=== PATIENT | male | born 1945 | race Caucasian/White ===

== ENCOUNTER 2023-11-02 10:36 | Observation (INO) | payer OTHER ==
[2023-11-02 11:27] VITALS: BMI 30.7
[2023-11-02] MEDS ORDERED: NITROGLYCERIN SUBLINGUAL 1/150 0.4 MG TAB SL PRN (11:30)
[2023-11-02] MEDS ORDERED: NITROGLYCERIN SUBLINGUAL 1/150 0.4 MG TAB ONE (11:48)
[2023-11-02] MEDS ORDERED: NITROGLYCERIN 2% OINTMENT - 1GM PACKET TD ONE ×2 (12:04→12:17)
[2023-11-02 12:43] LABS: BASO % 0.8 % (0-2.0); HEMATOCRIT 42.3 % (35.4-49); LYMPH % 29.4 % (8-40); MCHC 33.1 g/dl (32.0-35.9); MEAN CELL VOLUME 93.7 fl (80-96); MEAN PLT VOLUME 9.9 fl (7.5-11.1); MONO % 8.1 % (3.8-10.2); NEUT % 58.7 % (42.8-82.8); PLATELET COUNT 144 10^3/uL (134-434); RBC 4.52 M/mm3 (4.00-5.60); RDW 14.1 % (11.9-15.9); WHITE BLOOD COUNT 6.5 K/mm3 (4.0-10.0)
[2023-11-02 12:46] LABS: POTASSIUM 4.8 mmol/L (3.5-5.1)
[2023-11-02 12:48] LABS: CALCIUM 10.2 mg/dL (8.5-10.1); INR 1.05 (0.83-1.09); PROTHROMBIN TIME (PATIENT) 12.2 SEC (9.7-13.0)
[2023-11-02 12:49] LABS: ALBUMIN 3.8 g/dl (3.4-5.0); BLOOD UREA NITROGEN 19.4 mg/dL (7-18)
[2023-11-02 12:51] LABS: ACTIVATED PTT 27.6 SECONDS (25.2-36.5)
[2023-11-02 12:52] LABS: CREATININE 0.8 mg/dL (0.55-1.3)
[2023-11-02 12:53] LABS: BILIRUBIN,TOTAL 0.6 mg/dL (0.2-1); TOT PROT 7.2 g/dl (6.4-8.2)
[2023-11-02] MEDS ORDERED: METOPROLOL TARTRATE 25 MG TABLET (FP) PO ONE (17:41)
[2023-11-02] MEDS ORDERED: TAMSULOSIN HCL 0.4 MG CAP ONE (20:50)
[2023-11-02] MEDS ORDERED: metoPROLOL SUCCINATE 25 MG TAB.SR.24H (FP) PO ONE (20:50)
[2023-11-02] MEDS ORDERED: ACETAMINOPHEN 500 MG TABLET (FP) PO ONE (21:11)
[2023-11-02] MEDS ORDERED: ACETAMINOPHEN 500 MG TABLET (FP) ONE (21:14)
[2023-11-02] MEDS ORDERED: SOLIFENACIN SUCCINATE 5 MG TAB PO SCH (22:00)
[2023-11-02] MEDS ORDERED: TAMSULOSIN HCL 0.4 MG CAP PO SCH (22:00)
[2023-11-03] MEDS ORDERED: MELATONIN 5 MG TABLETS PO PRN (01:53)
[2023-11-03 07:22] VITALS: TEMP 97.4
[2023-11-03 08:16] LABS: POTASSIUM 3.5 mmol/L (3.5-5.1)
[2023-11-03 08:25] LABS: ALBUMIN 3.5 g/dl (3.4-5.0); BLOOD UREA NITROGEN 16.8 mg/dL (7-18); CALCIUM 9.1 mg/dL (8.5-10.1); MAGNESIUM 2.1 mg/dL (1.8-2.4)
[2023-11-03 08:28] LABS: BASO % 0.6 % (0-2.0); CREATININE 0.8 mg/dL (0.55-1.3); HEMATOCRIT 41.4 % (35.4-49); LYMPH % 33.3 % (8-40); MCHC 33.7 g/dl (32.0-35.9); MEAN PLT VOLUME 10.5 fl (7.5-11.1); MONO % 9.4 % (3.8-10.2); NEUT % 53.7 % (42.8-82.8); PHOSPHOROUS 4.2 mg/dL (2.5-4.9); PLATELET COUNT 136 10^3/uL (134-434); RDW 13.9 % (11.9-15.9); WHITE BLOOD COUNT 5.6 K/mm3 (4.0-10.0)
[2023-11-03 08:30] LABS: BILIRUBIN,TOTAL 0.6 mg/dL (0.2-1); TOT PROT 6.6 g/dl (6.4-8.2)
[2023-11-03] MEDS ORDERED: REGADENOSON 0.4 MG/5 ML PRE-FILLED SYRINGE IVPUSH ONE ×2 (09:32→10:15)
[2023-11-03] MEDS ORDERED: PANTOPRAZOLE 40 MG TABLET PO SCH (10:00)
[2023-11-03] MEDS ORDERED: CLOPIDOGREL BISULFATE 75 MG TABLET (FP) PO SCH (10:00)
[2023-11-03] MEDS ORDERED: ASPIRIN 81 MG CHEWABLE TABLETS PO SCH (10:00)
[2023-11-03] MEDS ORDERED: ENOXAPARIN NA (PORCINE) 40 MG/0.4 ML DISP.SYRIN SQ SCH (10:00)
[2023-11-03 13:12] VITALS: BP 128/83; PULSE 78; RESP 16
[2023-11-03] MEDS ORDERED: PANTOPRAZOLE 40 MG TABLET PO ONE (13:14)
[2023-11-03] MEDS ORDERED: ASPIRIN COATED 81 MG TABLET.EC ONE (13:14)
[2023-11-03] MEDS ORDERED: CLOPIDOGREL BISULFATE 75 MG TABLET (FP) ONE (13:14)
[2023-11-03] MEDS ORDERED: ENOXAPARIN NA (PORCINE) 40 MG/0.4 ML DISP.SYRIN SQ ONE (13:14)
[2023-11-03] MEDS ORDERED: ROSUVASTATIN CA 20 MG TABLET PO SCH (22:00)
== END 2023-11-03 14:56 | disposition home or self-care (01) ==
LOC: JER 10:36 → JERBED 15:26
PROVIDERS: ADMIT Internal Medicine; ATTEND Internal Medicine
PROC: 3E023GC Introduction of Other Therapeutic Substance into Muscle, Percutaneous Approach (ICD-10-PCS; principal; 2023-11-02)
PROC: 3E033GC Introduction of Other Therapeutic Substance into Peripheral Vein, Percutaneous Approach (ICD-10-PCS; 2023-11-02)
DX: R07.89 Other chest pain (principal); I25.110 Atherosclerotic heart disease of native coronary artery with unstable angina pectoris; I71.20 Thoracic aortic aneurysm, without rupture, unspecified; M19.90 Unspecified osteoarthritis, unspecified site; Z95.1 Presence of aortocoronary bypass graft; I11.9 Hypertensive heart disease without heart failure; Z79.01 Long term (current) use of anticoagulants; I00 Rheumatic fever without heart involvement; Z86.19 Personal history of other infectious and parasitic diseases; J98.4 Other disorders of lung; Z96.653 Presence of artificial knee joint, bilateral; E78.5 Hyperlipidemia, unspecified
CPT/HCPCS: 0241U-QW; 36415; 71045-TC-FY; 71250-TC; 78452-TC; 80053; 82550; 83735; 84100; 84436; 84443; 84484; 85025; 85610; 85730; 93005; 93010; 93017; 93306-TC; 96372; 96374; 99285-25; A9502; G0378; J2785